=== PATIENT | male | born 1965 | race African-American/Black ===

== ENCOUNTER 2019-01-23 10:43 | Inpatient (IN) | payer SELFPAY ==
[~2019-01-23] VITALS: Ht 185.4 cm; Wt 95.3 kg
[~2019-01-23 10:43] MED LIST: PRAV40TA58 PO
[2019-01-23] MEDS ORDERED: MORPHINE SULFATE 4 MG/ML CPJ (NOT FOR IM USE) IV STA (11:34)
[2019-01-23] MEDS ORDERED: ONDANSETRON HCL 4MG/2ML INJ IV STA (11:34)
[2019-01-23] MEDS ORDERED: NITROGLYCERIN OINT 1GM/INCH UDPKT TD ONE (11:45)
[2019-01-23] MEDS ORDERED: ASPIRIN 81MG TABLET PO ONE (11:45)
[2019-01-23 12:11] LABS: BASOPHILS % 0.8 % (0.0-2.0); EOSINOPHILS % 1.9 % (0.0-5.0); HEMATOCRIT. 41.6 % (42.0-52.0); HEMOGLOBIN. 13.3 g/dL (14.0-18.0); LYMPHOCYTES % 19.7 % (20.0-50.0); MEAN CORPUSCULAR HEMOGLOBIN 23.7 pg (28.0-32.0); MEAN CORPUSCULAR VOLUME 74.2 fL (80.0-94.0); MEAN PLATELET VOLUME 9.5 fl (7.4-10.4); MONOCYTES % 6.8 % (2.0-8.0); NEUTROPHILS % 70.8 % (40.0-76.0); PLATELET 193 x1000/uL (130-400); RED BLOOD CELL COUNT 5.61 mill/uL (4.7-6.1); RED CELL DISTRIBUTION WIDTH 16.1 % (11.6-14.6)
[2019-01-23 12:17] LABS: CHLORIDE 107 mEq/L (98-107)
[2019-01-23 12:21] LABS: ETHANOL BLOOD < 10 mg/dL
[2019-01-23 12:26] LABS: PARTIAL THROMBOPLASTIN TIME 27.5 sec (23.4-31.0); PROTHROMBIN TIME 10.2 sec (9.6-11.0)
[2019-01-23] MEDS ORDERED: MECLIZINE 25MG TABLET PO PRN (13:15)
[2019-01-23] MEDS ORDERED: ONDANSETRON HCL 4MG/2ML INJ IV PRN (13:15)
[2019-01-23] MEDS ORDERED: ACETAMINOPHEN 325MG TABLET PO PRN (13:15)
[2019-01-23 14:00] LABS: CLARITY URINE CLEAR (CLEAR); COLOR URINE YELLOW (YELLOW); KETONES URINE NEGATIVE (NEGATIVE); LEUKOCYTE ESTERASE URINE NEGATIVE (NEGATIVE); NITRITE URINE NEGATIVE (NEGATIVE); OCCULT BLOOD URINE NEGATIVE (NEGATIVE); PH URINE 6.5 (4.5-8.0); PROTEIN URINE NEGATIVE (NEGATIVE); SPECIFIC GRAVITY URINE 1.013 (1.005-1.030); UROBILINOGEN URINE 0.2 E.U./dL (0.2-1.0)
[2019-01-23 14:21] VITALS: BP_SYST 128; BP_SYST 134; BP_DIAS 77; BP_DIAS 79; BP_DIAS 88
[2019-01-23 14:21] LABS: *AMPHETAMINES SCREEN URINE NEGATIVE (NEGATIVE); *BARBITURATES SCREEN URINE NEGATIVE (NEGATIVE); *BENZODIAZEPINES SCREEN URINE NEGATIVE (NEGATIVE); *COCAINE SCREEN URINE NEGATIVE (NEGATIVE); METHADONE URINE SCREEN NEGATIVE (NEGATIVE)
[2019-01-23 14:22] LABS: CANNABINOID URINE SCREEN NEGATIVE (NEGATIVE); OPIATES URINE SCREEN PRESUMTIVE POSITIVE (NEGATIVE); PHENCYCLIDINE URINE SCREEN NEGATIVE (NEGATIVE)
[2019-01-23 15:28] VITALS: BP 128/77
[2019-01-23 16:00] VITALS: BP 120/70
[2019-01-23 20:00] VITALS: BP 121/71
[2019-01-23] MEDS ORDERED: ATORVASTATIN CALCIUM 20MG TABLET PO SCH (21:00)
[2019-01-23] MEDS: AMLODIPINE 5MG TABLET PO SCH (21:36)
[2019-01-23] MEDS: METOPROLOL TARTRATE 50MG TABLET PO SCH (21:36)
[2019-01-23 22:42] VITALS: BP 121/71
[2019-01-24] VITALS: BP 116/73
[2019-01-24 04:00] VITALS: BP_SYST 116; BP_DIAS 68; BP_DIAS 83
[2019-01-24 07:32] LABS: CHLORIDE 108 mEq/L (98-107)
[2019-01-24 07:33] LABS: BASOPHILS % 0.7 % (0.0-2.0); EOSINOPHILS % 3.3 % (0.0-5.0); HEMATOCRIT. 39.9 % (42.0-52.0); HEMOGLOBIN. 12.7 g/dL (14.0-18.0); LYMPHOCYTES % 31.9 % (20.0-50.0); MEAN CORPUSCULAR HEMOGLOBIN 23.7 pg (28.0-32.0); MEAN CORPUSCULAR VOLUME 74.5 fL (80.0-94.0); MEAN PLATELET VOLUME 9.7 fl (7.4-10.4); MONOCYTES % 8.7 % (2.0-8.0); NEUTROPHILS % 55.4 % (40.0-76.0); PLATELET 165 x1000/uL (130-400); RED BLOOD CELL COUNT 5.36 mill/uL (4.7-6.1); RED CELL DISTRIBUTION WIDTH 16.4 % (11.6-14.6)
[2019-01-24 07:59] VITALS: BP 120/68
[2019-01-24] MEDS: METOPROLOL TARTRATE 50MG TABLET PO SCH (08:24)
[2019-01-24] MEDS: AMLODIPINE 5MG TABLET PO SCH (08:24)
[2019-01-24] MEDS ORDERED: ASPIRIN 81MG TABLET PO SCH (09:00)
[2019-01-24 12:00] VITALS: BP 113/63
[2019-01-24 13:46] VITALS: BP 113/63
[2019-01-24] MEDS ORDERED: ATORVASTATIN CALCIUM 40MG TABLET PO SCH (21:00)
== END 2019-01-24 14:19 | disposition home or self-care (01) | DRG 48 ==
LOC: ER 10:43 → EDBEDREQ 12:12 → ENRESERV 12:56 → 5WST 13:58
PROVIDERS: ADMIT Internal Medicine; ATTEND Internal Medicine
DX: G90.8 Other disorders of autonomic nervous system (principal); D64.9 Anemia, unspecified; R07.89 Other chest pain; E78.00 Pure hypercholesterolemia, unspecified; E78.5 Hyperlipidemia, unspecified; F17.210 Nicotine dependence, cigarettes, uncomplicated; I10 Essential (primary) hypertension; J44.9 Chronic obstructive pulmonary disease, unspecified; Z79.899 Other long term (current) drug therapy; Z71.6 Tobacco abuse counseling
CPT/HCPCS: 36415; 71045; 80048; 80061; 80305; 80320; 83880; 84443; 84484; 93005; 93306; 93970; 96374; 96375; 99285; J2270; J2405; G0480